=== PATIENT | female | born 1995 | race African-American/Black ===

== ENCOUNTER 2023-05-13 06:49 | Emergency (ER) | payer OTHER, SELFPAY ==
[2023-05-13] MEDS ORDERED: Acetaminophen 500 MG TAB ONE (07:53)
[2023-05-13 09:03] LABS: Troponin I Less than 0.010 ng/mL (< 0.028)
== END 2023-05-13 09:00 | disposition home or self-care (01) ==
LOC: CSHERS 06:49
DX: R07.89 Other chest pain (principal); F17.290 Nicotine dependence, other tobacco product, uncomplicated
CPT/HCPCS: 71045; 84484; 93005